=== PATIENT | male | born 1980 | race Caucasian/White ===

== ENCOUNTER 2018-01-22 14:00 | Outpatient (RCR) | payer OTHER, SELFPAY | END 2018-01-22 14:01 | disposition home or self-care (01) | LOC: PT 14:00 | PROVIDERS: Family Provider Emergency Medicine; PCP Emergency Medicine; Visit Provider Physician Assistant Medical | DX: M51.36 Other intervertebral disc degeneration, lumbar region (principal) | CPT/HCPCS: 97010; 97012; 97014; 97035; 97110; 97140; 97164; G0283 ==

== ENCOUNTER → 2018-06-10 10:51 | Outpatient (POV) | payer OTHER, SELFPAY ==
[2018-06-10 11:08] VITALS: BP 156/111; PULSE 90; RESP 18; O2SAT 98
--- NOTE | 2018-06-10 11:28 | HMH.PMCON ---
Assessment and Plan (1) Degenerative disc disease Current visit: Yes Status: Chronic Category: Medical (2) Facet arthropathy Current visit: Yes Status: Chronic Category: Medical Code(s): M46.90 - Unspecified inflammatory spondylopathy, site unspecified - Assessment and plan all Dx Assessment and Plan for all problems:: States that he does not like needles. Patient states that he had a needle break off in his arm when he was a kid. I discussed medial branch blocks and facet joint injections with the patient along with rhizotomies. I provided him information in regards to this. Patient would like to take this home and discuss. Patient is not on any anticoagulation therapy and has tried and failed multiple conservative measures including medication, anti-inflammatories, physical therapy. I believe facet joint injections/medial branch blocks would be beneficial for him he is going to give us a call if he interested in this. If he is we will schedule a L3-L4 L4-L5 L5-S1 facet joint injection/medial branch block bilaterally. This note was dictated using voice recognition software and may contain errors or omissions HPI - Data of Consult Consult date: 06/10/18 Requesting Physician: Betzy Knutson APRN Primary Care Provider: Shaun Sahrp MD Family Provider: Jacques Leonard MD - Consult Narrative Reason for consult: Back pain History of present illness: Mr. Gill is a 37 year old male who presents today for consultation in regards to his low back pain. Patient rates his pain today a 7 out of 10 he states is constant. Patient states that repositioning does help sometimes. Patient denies any numbness or tingling or any radicular symptoms. He states that all of his pain is directly in his low back and does not radiate. Patient had back surgery back in 2010 however he cannot recall the physician. Patient's tried and failed physical therapy along with chiropractic therapy. Patient states that bending, lifting, yardwork increases his pain while ice and rest decreases pain. Patient is currently on tramadol for his pain symptoms. Patient does have an MRI showing some degenerative changes. CC: Betzy Knutson APRN [facility] History I have reviewed the patient's past medical history: Yes Medical History: Reports:: Hyperlipidemia, Hypertension Laterality Cases: Left: Arthroscopy Shoulder, Right: ACL Repair - *Social History Alcohol Intake: never Occupational Status: other Housing: house Household Members: other - Psychiatric History Expresses thoughts of harming self/others: None Suicide Plan Description: No Plan *Family Hx:: Unable to obtain Review of Systems - Review of Systems ROS General: no recent weight change, no fever, no sleep disturbances Respiratory: no cough, no shortness of air, no recurring pulmonary infections Cardiovascular/Peripheral Vascular: No chest pain, No palpitations, no edema, no shortness of breath. Gastrointestinal: no incontinence, normal bowel movements reported Genitourinary: no incontinence Musculoskeletal: Back pain Psychiatric: normal mood/ affect Neurological: [denies weakness in extremities], denies balance issues Meds Home Medications Medication Instructions Recorded Confirmed Type ALPRAZolam [Xanax 0.5mg tab] 0.5 mg PO POSTTR 06/10/18 06/10/18 History Atorvastatin Calcium [Lipitor 80mg 80 mg PO DAILY 06/10/18 06/10/18 History Tablet] Citalopram Hydrobromide [Celexa 40 mg PO DAILY 06/10/18 06/10/18 History 40mg Tablet] Allergies Allergy/AdvReac Type Severity Reaction Status Date / Time codeine [CODEINE] Allergy Mild Unverified 11/12/17 15:09 naproxen [NAPROXEN] Allergy Mild Unverified 11/12/17 15:09 Objective Vital signs: Pulse Resp BP Pulse Ox 90 18 156/111 98 06/10/18 11:08 06/10/18 11:08 06/10/18 11:08 06/10/18 11:08 Narrative: Physical Exam General: Alert and oriented x3, no
--- NOTE | 2018-06-10 11:31 | P.CONS_ITS ---
Assessment and Plan (1) Degenerative disc disease Current visit: Yes Status: Chronic Category: Medical (2) Facet arthropathy Current visit: Yes Status: Chronic Category: Medical Code(s): M46.90 - Unspecified inflammatory spondylopathy, site unspecified - Assessment and plan all Dx Assessment and Plan for all problems:: States that he does not like needles. Patient states that he had a needle break off in his arm when he was a kid. I discussed medial branch blocks and facet joint injections with the patient along with rhizotomies. I provided him information in regards to this. Patient would like to take this home and discuss. Patient is not on any anticoagulation therapy and has tried and failed multiple conservative measures including medication, anti-inflammatories , physical therapy. I believe facet joint injections/medial branch blocks would be beneficial for him he is going to give us a call if he interested in this. If he is we will schedule a L3-L4 L4-L5 L5-S1 facet joint injection/ medial branch block bilaterally. This note was dictated using voice recognition software and may contain errors or omissions HPI - Data of Consult Consult date: 06/10/18 Requesting Physician: Betzy Knutson APRN Primary Care Provider: Shaun Sharp MD Family Provider: Jacques Leonard MD - Consult Narrative Reason for consult: Back pain History of present illness: Mr. Gill is a 37 year old male who presents today for consultation in regards to his low back pain. Patient rates his pain today a 7 out of 10 he states is constant. Patient states that repositioning does help sometimes. Patient denies any numbness or tingling or any radicular symptoms. He states that all of his pain is directly in his low back and does not radiate. Patient had back surgery back in 2010 however he cannot recall the physician. Patient's tried and failed physical therapy along with chiropractic therapy. Patient states that bending, lifting, yardwork increases his pain while ice and rest decreases pain. Patient is currently on tramadol for his pain symptoms. Patient does have an MRI showing some degenerative changes. CC: Betzy Knutson APRN [facility] History I have reviewed the patient's past medical history: Yes Medical History: Reports:: Hyperlipidemia, Hypertension Laterality Cases: Left: Arthroscopy Shoulder, Right: ACL Repair - *Social History Alcohol Intake: never Occupational Status: other Housing: house Household Members: other - Psychiatric History Expresses thoughts of harming self/others: None Suicide Plan Description: No Plan *Family Hx:: Unable to obtain Review of Systems - Review of Systems ROS General: no recent weight change, no fever, no sleep disturbances Respiratory: no cough, no shortness of air, no recurring pulmonary infections Cardiovascular/Peripheral Vascular: No chest pain, No palpitations, no edema, no shortness of breath. Gastrointestinal: no incontinence, normal bowel movements reported Genitourinary: no incontinence Musculoskeletal: Back pain Psychiatric: normal mood/ affect Neurological: [denies weakness in extremities], denies balance issues Meds Home Medications Medication Instructions Recorded Confirmed Type ALPRAZolam [Xanax 0.5mg tab] 0.5 mg PO POSTTR 06/10/18 06/10/18 History Atorvastatin Calcium [Lipitor 80mg 80 mg PO DAILY 06/10/18 06/10/18 History Tablet] Citalopram Hydrobromide [Celexa 40 mg PO DAILY 06/10/18 06/10/18 Hist
== END ==
PROVIDERS: Family Provider Emergency Medicine; PCP Obstetrics & Gynecology; Visit Provider Clinical Nurse Specialist Family Health
DX: M46.90 Unspecified inflammatory spondylopathy, site unspecified (principal)
CPT/HCPCS: 99202

== ENCOUNTER → 2018-07-14 13:34 | Outpatient (POV) | payer OTHER, SELFPAY ==
[2018-07-14 13:48] VITALS: BP 153/107; PULSE 95; RESP 18; O2SAT 98; BMI 32.8
--- NOTE | 2018-07-14 14:00 | HMH.PAINSOAP ---
[facility] Pain Management SOAP Note Subjective:: Patient is a pleasant 38-year-old white male who presents today for follow-up after medial branch block at L3-L4 L4-L5 L5-S1 bilaterally. Patient had significant relief from his medial branch blocks having 100% relief right after and still having 80% relief at this time. He rates his pain a 2 out of 10. Patient would like to repeat a medial branch block and potentially have an RFA in the future. I believe given his benefit from his last injection this would be appropriate. ROS General: no recent weight change, no fever, no sleep disturbances Respiratory: no cough, no shortness of air, no recurring pulmonary infections Cardiovascular/Peripheral Vascular: No chest pain, No palpitations, no edema, no shortness of breath. Gastrointestinal: no incontinence, normal bowel movements reported Genitourinary: no incontinence Musculoskeletal: Back pain Psychiatric: normal mood/ affect Neurological: [denies weakness in extremities], [denies balance issues] Objective:: Physical Exam General: Alert and oriented x3, no acute distress, pleasant and cooperative, [on room air] Lungs: Resps E/U, Symmetrical chest expansion, Eyes: PERRL Musculoskeletal: Flexion and extension of lumbar spine somewhat guarded secondary to pain, deep tendon reflexes normal, strength in upper and lower extremities [5/5], normal gait noted, positive facet loading lumbar spine bilaterally Neurological: speech clear, publication distributor equal, no gross sensory deficits Assessment:: Facet arthropathy, degenerative disc disease, lumbar spondylosis Plan:: We will schedule the patient for repeat medial branch block at L3-L4 L4-L5 L5-S1 bilaterally. I will follow-up with the patient after his next injection and we will discuss further about his RFA options. This note was dictated using voice recognition software and may contain errors or omissions
--- NOTE | 2018-07-14 14:04 | P.CONS_ITS ---
[facility] Pain Management SOAP Note Subjective:: Patient is a pleasant 38-year-old white male who presents today for follow-up after medial branch block at L3-L4 L4-L5 L5-S1 bilaterally. Patient had significant relief from his medial branch blocks having 100% relief right after and still having 80% relief at this time. He rates his pain a 2 out of 10. Patient would like to repeat a medial branch block and potentially have an RFA in the future. I believe given his benefit from his last injection this would be appropriate. ROS General: no recent weight change, no fever, no sleep disturbances Respiratory: no cough, no shortness of air, no recurring pulmonary infections Cardiovascular/Peripheral Vascular: No chest pain, No palpitations, no edema, no shortness of breath. Gastrointestinal: no incontinence, normal bowel movements reported Genitourinary: no incontinence Musculoskeletal: Back pain Psychiatric: normal mood/ affect Neurological: [denies weakness in extremities], [denies balance issues] Objective:: Physical Exam General: Alert and oriented x3, no acute distress, pleasant and cooperative, [ on room air] Lungs: Resps E/U, Symmetrical chest expansion, Eyes: PERRL Musculoskeletal: Flexion and extension of lumbar spine somewhat guarded secondary to pain, deep tendon reflexes normal, strength in upper and lower extremities [5/5], normal gait noted, positive facet loading lumbar spine bilaterally Neurological: speech clear, health policy manager equal, no gross sensory deficits Assessment:: Facet arthropathy, degenerative disc disease, lumbar spondylosis Plan:: We will schedule the patient for repeat medial branch block at L3-L4 L4-L5 L5- S1 bilaterally. I will follow-up with the patient after his next injection and we will discuss further about his RFA options. This note was dictated using voice recognition software and may contain errors or omissions
== END ==
PROVIDERS: Family Provider Emergency Medicine; PCP Obstetrics & Gynecology; Visit Provider Clinical Nurse Specialist Family Health
DX: M54.06 Panniculitis affecting regions of neck and back, lumbar region (principal); M47.896 Other spondylosis, lumbar region
CPT/HCPCS: 99213

== ENCOUNTER → 2018-08-18 14:27 | Outpatient (POV) | payer OTHER, SELFPAY ==
--- NOTE | 2018-08-18 14:55 | P.CONS_ITS ---
[facility] Pain Management SOAP Note Subjective:: A pleasant 38-year-old white male who presents today after second round of medial branch blocks at L4-5 L5-S1. Patient got 90% relief of his pain symptoms for several weeks. He is beginning to return. Patient is interested in moving forward with radiofrequency ablation of these levels. I believe that long-term this will help with his functionality. Patient states he is much more functional when he has these injections. Patient also states that he is doing his home stretching program and his anti-inflammatories. He rates his pain a 5 out of 10 today. ROS General: no recent weight change, no fever, no sleep disturbances Respiratory: no cough, no shortness of air, no recurring pulmonary infections Cardiovascular/Peripheral Vascular: No chest pain, No palpitations, no edema, no shortness of breath. Gastrointestinal: no incontinence, normal bowel movements reported Genitourinary: no incontinence Musculoskeletal: Back pain Psychiatric: normal mood/ affect Neurological: [denies weakness in extremities], [denies balance issues] Objective:: Physical Exam General: Alert and oriented x3, no acute distress, pleasant and cooperative, [on room air] Lungs: Resps E/U, Symmetrical chest expansion, Eyes: PERRL Musculoskeletal: Flexion and extension of lumbar spine somewhat guarded secondary to pain, deep tendon reflexes normal, strength in upper and lower extremities [5/5], slightly antalgic gait noted, positive Kemps test lumbar spine bilateral Neurological: speech clear, international freight forwarder equal, no gross sensory deficits Assessment:: Degenerative disc disease lumbar spine with lumbar spondylosis and facet arthropathy Plan:: We will schedule an RFA for the patient we will start with the left side at L3- L4 L4 L5-S1 and then in 2 weeks we will plan on doing the right side at the same levels. Patient is not on any anticoagulation. I will follow-up with the patient after his RFA. This note was dictated using voice recognition software and may contain errors or omissions
[2018-08-18 15:41] VITALS: BP 123/85; PULSE 104; RESP 18; O2SAT 98; BMI 33.5
== END ==
PROVIDERS: Family Provider Emergency Medicine; PCP Obstetrics & Gynecology; Visit Provider Clinical Nurse Specialist Family Health
DX: M51.36 Other intervertebral disc degeneration, lumbar region (principal); M47.896 Other spondylosis, lumbar region; M46.96 Unspecified inflammatory spondylopathy, lumbar region
CPT/HCPCS: 99213

== ENCOUNTER → 2018-11-03 13:23 | Outpatient (POV) | payer OTHER, SELFPAY ==
[2018-11-03 13:42] VITALS: BP 116/85; PULSE 92; RESP 18; O2SAT 99; BMI 30.9
--- NOTE | 2018-11-03 14:47 | HMH.PAINSOAP ---
[facility] Pain Management SOAP Note Subjective:: Patient is a pleasant 38-year-old white male who presents today for follow-up after his lumbar RFA of the L3-L4 L4-L5 L5-S1 levels. Patient is doing extremely well rating his pain a 3 out of 10. He states I did not believe this would work and thought you are crazy the first time I met you . Patient is doing well and would like to follow-up on an as-needed basis. ROS General: no recent weight change, no fever, no sleep disturbances Respiratory: no cough, no shortness of air, no recurring pulmonary infections Cardiovascular/Peripheral Vascular: No chest pain, No palpitations, no edema, no shortness of breath. Gastrointestinal: no incontinence, normal bowel movements reported Genitourinary: no incontinence Musculoskeletal: Back pain Psychiatric: normal mood/ affect Neurological: [denies weakness in extremities], [denies balance issues] Objective:: Physical Exam General: Alert and oriented x3, no acute distress, pleasant and cooperative, [on room air] Lungs: Resps E/U, Symmetrical chest expansion, Eyes: PERRL Musculoskeletal: Flexion and extension of lumbar spine somewhat guarded secondary to pain, deep tendon reflexes normal, strength in upper and lower extremities [5/5], normal gait noted Neurological: speech clear, marine chronometer assembler equal, no gross sensory deficits Assessment:: Degenerative disc disease lumbar spine with facet arthropathy and lumbar spondylosis Plan:: We will see the patient back on an as-needed basis. Patient's been instructed to call the office if he has any issues. This note was dictated using voice recognition software and may contain errors or omissions
--- NOTE | 2018-11-03 14:50 | P.CONS_ITS ---
[facility] Pain Management SOAP Note Subjective:: Patient is a pleasant 38-year-old white male who presents today for follow-up after his lumbar RFA of the L3-L4 L4-L5 L5-S1 levels. Patient is doing extremely well rating his pain a 3 out of 10. He states I did not believe this would work and thought you are crazy the first time I met you . Patient is doing well and would like to follow-up on an as-needed basis. ROS General: no recent weight change, no fever, no sleep disturbances Respiratory: no cough, no shortness of air, no recurring pulmonary infections Cardiovascular/Peripheral Vascular: No chest pain, No palpitations, no edema, no shortness of breath. Gastrointestinal: no incontinence, normal bowel movements reported Genitourinary: no incontinence Musculoskeletal: Back pain Psychiatric: normal mood/ affect Neurological: [denies weakness in extremities], [denies balance issues] Objective:: Physical Exam General: Alert and oriented x3, no acute distress, pleasant and cooperative, [on room air] Lungs: Resps E/U, Symmetrical chest expansion, Eyes: PERRL Musculoskeletal: Flexion and extension of lumbar spine somewhat guarded secondary to pain, deep tendon reflexes normal, strength in upper and lower extremities [5/5], normal gait noted Neurological: speech clear, integration developer equal, no gross sensory deficits Assessment:: Degenerative disc disease lumbar spine with facet arthropathy and lumbar spondylosis Plan:: We will see the patient back on an as-needed basis. Patient's been instructed to call the office if he has any issues. This note was dictated using voice recognition software and may contain errors or omissions
== END ==
PROVIDERS: Visit Provider Clinical Nurse Specialist Family Health
DX: M51.36 Other intervertebral disc degeneration, lumbar region (principal); M54.06 Panniculitis affecting regions of neck and back, lumbar region; M47.896 Other spondylosis, lumbar region
CPT/HCPCS: 99213

== ENCOUNTER 2020-10-04 09:25 | Emergency (ER) | payer OTHER, SELFPAY ==
[2020-10-04 09:46] VITALS: BP 120/84; PULSE 71; RESP 19; TEMP 36.6; O2SAT 98; BMI 27.1
--- NOTE | 2020-10-04 09:52 | HMH.EDUTC ---
[facility] [place] Clinical Impression: Encounter for laboratory testing for COVID-19 virus Disposition: Home, Self-Care Condition on Discharge: Good Instructions: Preventing the Spread of Coronavirus Discharge Instructions Additional Instructions: *Monitor Temp, Over the counter Motrin or Tylenol as directed/as needed Tylenol every 4 hours and Motrin every 6 hours (as long as your family doctor has told you that you can take it) for fever or pain. and straight to ER if unable to lower temp less than 101.0 after medication given *Warm salt water gargles may help to soothe the throat *Throat Lozenges *Warm fluids like tea with honey may help to soothe the throat *Sleep elevated *Humidifier/Vaporizer *Flonase 2 sprays in each nostril daily but be aware that it may take 2-3 days before you notice improvement Follow up IMMEDIATELY for new or worsening symptoms or no Noticeable improvement over the next 48-72 hours. 911 for difficulty breathing or swallowing You was tested for today for COVID19 your test result should be back in the next 24-48 hours, you may call to the [facility] tomorrow to see if your test results are back and the result [phone] You was given a handout with instructions for Self Quarantine and Self isolation for while you wait on test results and what to do if they are positive If you are positive the Health Dept will be contacting you also Prescriptions: Fluticasone Propionate [Flonase 50mcg nasal spray 16gm] 1 spr NS DAILY #1 bottle Transmission Status: Pending to [facility] Referrals: Joyce Cisneros [Primary Care Provider] - As needed Forms: Work/School Release Time of Disposition: 09:56 Medical Decision Making - Tay Inquiry Pt receiving controlled substance: No Tay was queried for this patient: No Vital Signs: 10/04/20 09:46 Temperature 97.8 F Temperature Source Oral Pulse Rate [Left] 71 Respiratory Rate 19 Blood Pressure [Right Arm] 120/84 Blood Pressure Mean [Right Arm] 96 Blood Pressure Source [Right Arm] Automatic Cuff Blood Pressure Position [Right Arm] Sitting 02 Sat by Pulse Oximetry 98 Oxygen Delivery Method Room Air [facility] [place] HPI - General Stated complaint: possible covid exposure Time Seen by Provider: 10/04/20 09:52 Mode of Arrival: Ambulatory Source of Information: Patient Limitations: No Limitations Description of Symptoms (Recalled from Triage Doc. by RN): Covid testing HEENT Symptoms (Recalled from RN notes): No Resp Symptoms (Recalled from RN notes): No Skin Symptoms (Recalled from RN notes): No MS Symptoms (Recalled from RN notes): No Functional Status (Recalled from RN notes): stable - History of Present Illness Provider Complaint: Patient state that he come in to get tested for COVID States that he thinks he may have been exposed States that he was sick about 2 weeks ago and was around someone last week that has since been tested for COVID but unsure if they was positive or not so he come in to get tested Denies symptoms at this time - Related Data Home Medications Medication Instructions Recorded Confirmed ALPRAZolam [Xanax 0.5mg tab] 0.5 mg PO TIDP PRN 06/10/18 09/26/18 Atorvastatin Calcium [Lipitor 80mg 80 mg PO DAILY 06/10/18 09/26/18 Tablet] Citalopram Hydrobromide [Celexa 40 mg PO DAILY 06/10/18 09/26/18 40mg Tablet] Previous Rx's Medication Instructions Recorded Fluticasone Propionate [Flonase 1 spr NS DAILY #1 bottle 10/04/20 50mcg nasal spray 16gm] Allergies Allergy/AdvReac Type Severity Reaction Status Date / Time codeine [CODEINE] Allergy Mild Verified 09/12/18 14:07 naproxen [NAPROXEN] Allergy Mild Verified 09/12/18 14:07 - Worker's Comp Is this a Worker's Comp case?: No Is this an H Worker's Comp?: No Is this a [place] Worker's Comp?: No [facility] History - Hepatitis A Screen Drug use history?: No High risk sexual behaviors?: No History of sexually transmitted infection?: No Currently employed?: No
[2020-10-04 09:54] VITALS: BP 120/84; PULSE 71; RESP 19; TEMP 36.6; O2SAT 98
[2020-10-05 20:31] LABS: Covid-19 Nasal PCR Sendout Lex Not Detected
== END 2020-10-04 10:00 | disposition home or self-care (01) ==
PROVIDERS: Emergency Provider Nurse Practitioner; PCP Nurse Practitioner Family
DX: Z20.828 Contact with and (suspected) exposure to other viral communicable diseases (principal); E78.5 Hyperlipidemia, unspecified; I10 Essential (primary) hypertension; Z88.6 Allergy status to analgesic agent; Z79.899 Other long term (current) drug therapy
CPT/HCPCS: 99201; U0004

== ENCOUNTER → 2021-11-06 12:10 | Outpatient (CLI) | payer OTHER, SELFPAY | PROVIDERS: Visit Provider Nurse Practitioner | DX: U07.1 COVID-19 (principal) | CPT/HCPCS: C9803; U0003; U0005 ==

== ENCOUNTER 2024-12-14 13:19 | Outpatient (CLI) | payer OTHER, SELFPAY ==
--- NOTE | 2024-12-14 13:23 | XR_ITS ---
FINAL REPORT CLINICAL HISTORY: right knee pain PAIN IN RIGHT KNEE , GIVES OUT , FEELS LIKE BONE ON BONE COMPARISON: None FINDINGS: RIGHT KNEE: No prior examination is present for comparison purposes. There is no acute fracture or dislocation. There is advanced medial compartment joint space narrowing noted, along with subchondral sclerosis. There is an intra-articular loose body in the anterior portion of the knee measuring up to 6 mm in size. A minimal joint effusion is present. There is no soft tissue abnormality. IMPRESSION: Advanced degenerative change is noted in the medial compartment as described, without acute bony abnormality. Reviewed, Interpreted and Dictated by Wilbur Christina MD Transcribed by Mis Puri Authenticated and [facility]
== END 2024-12-14 23:59 | disposition home or self-care (01) ==
LOC: RAD 13:21
PROVIDERS: Visit Provider Physician Assistant
DX: M25.561 Pain in right knee (principal)
CPT/HCPCS: 73562

== ENCOUNTER 2024-12-23 15:32 | Outpatient (CLI) | payer OTHER, SELFPAY ==
--- NOTE | 2024-12-23 15:42 | MR_ITS ---
PROCEDURE INFORMATION: Exam: MR Right Lower Extremity Joint Without Contrast, Knee Exam date and time: 12/23/2024 3:49 PM Age: 44 years old Clinical indication: Pain; Knee; Right; Prior surgery; Surgery date: 6+ months; Surgery type: Acl repair x2; Additional info: RT knee pain. Lateral sided pain. Instability TECHNIQUE: Imaging protocol: Magnetic resonance imaging of the right lower extremity joint without contrast. Exam focused on the knee. COMPARISON: CR XR KNEE RT 3V 12/14/2024 1:25 PM FINDINGS: Bones/joints: Moderate effusion with limited synovial proliferation and debris. 2.8 cm surgical defect related to previous ACL repairs below tibial spines and extending below the medial tibial plateau without definite acute fracture. Medial meniscus: Largely deficient degenerated body of the medial meniscus. Severe loss of articular cartilage medial joint compartment and mild degenerative change elsewhere. Lateral meniscus: Unremarkable. No tear. Anterior cruciate ligament: Indistinct and largely disrupted ACL Graft. There may be some minimal intact remaining fibers here. There is mild associated anterior translation of the tibia relative to the distal femur. Posterior cruciate ligament: Unremarkable. No tear. Medial capsule and supporting structures: Unremarkable. No tear. Lateral capsule and supporting structures: Unremarkable. No tear. Extensor mechanism of knee: Unremarkable. No tear. Soft tissues: Unremarkable. Other findings: Fairly extensive postsurgical artifact. IMPRESSION: 1. Indistinct and largely disrupted ACL Graft. There may be some minimal intact remaining fibers here. There is mild associated anterior translation of the tibia relative to the distal femur. 2. Moderate effusion with limited synovial proliferation and debris. 3. Largely deficient degenerated body of the medial meniscus. Severe loss of articular cartilage medial joint compartment and mild degenerative change elsewhere.
== END 2024-12-23 23:59 | disposition home or self-care (01) ==
LOC: RAD 15:33
PROVIDERS: Visit Provider Physician Assistant
DX: M25.561 Pain in right knee (principal)
CPT/HCPCS: 73721

== ENCOUNTER 2025-03-23 10:00 | Outpatient (RCR) | payer OTHER, SELFPAY | END 2025-03-23 23:59 | disposition home or self-care (01) | LOC: PT 10:00 | PROVIDERS: PCP Physician Assistant; Visit Provider Orthopaedic Surgery Adult Reconstructive Orthopaedic Surgery | DX: M25.561 Pain in right knee (principal); Z96.651 Presence of right artificial knee joint | CPT/HCPCS: 97014; 97016; 97110; 97140; 97163; 97530; G0283 ==

== ENCOUNTER 2025-04-23 16:00 | Outpatient (RCR) | payer OTHER, SELFPAY | END 2025-04-23 23:59 | disposition home or self-care (01) | LOC: PT 16:00 | PROVIDERS: PCP Physician Assistant; Visit Provider Orthopaedic Surgery Adult Reconstructive Orthopaedic Surgery | DX: Z47.89 Encounter for other orthopedic aftercare (principal); Z96.651 Presence of right artificial knee joint | CPT/HCPCS: 97014; 97016; 97110; 97140; 97164; G0283 ==

== ENCOUNTER 2025-05-20 11:00 | Outpatient (RCR) | payer OTHER, SELFPAY | END 2025-05-20 23:59 | disposition home or self-care (01) | LOC: PT 11:00 | PROVIDERS: PCP Physician Assistant; Visit Provider Orthopaedic Surgery Adult Reconstructive Orthopaedic Surgery | DX: Z47.89 Encounter for other orthopedic aftercare (principal); Z96.651 Presence of right artificial knee joint | CPT/HCPCS: 97014; 97016; 97110; 97140; 97164; 97530; G0283 ==

== ENCOUNTER 2025-06-24 11:00 | Outpatient (RCR) | payer OTHER, SELFPAY | END 2025-06-24 23:59 | disposition home or self-care (01) | LOC: PT 11:00 | PROVIDERS: PCP Physician Assistant; Visit Provider Orthopaedic Surgery Adult Reconstructive Orthopaedic Surgery | DX: Z47.89 Encounter for other orthopedic aftercare (principal); Z96.651 Presence of right artificial knee joint | CPT/HCPCS: 97110; 97140; 97164; 97530 ==

== ENCOUNTER 2025-06-30 10:59 | Outpatient (RCR) | payer OTHER, SELFPAY | END 2025-06-30 23:59 | disposition home or self-care (01) | LOC: PT 10:59 | PROVIDERS: PCP Physician Assistant; Visit Provider Orthopaedic Surgery Adult Reconstructive Orthopaedic Surgery | DX: Z47.89 Encounter for other orthopedic aftercare (principal); Z96.651 Presence of right artificial knee joint | CPT/HCPCS: 97110 ==